=== PATIENT | male | born 1940 | race Caucasian/White ===

== ENCOUNTER 2017-06-22 14:19 | Emergency (ER) | payer OTHER ==
[~2017-06-22] VITALS: Ht 177.8 cm; Wt 94.4 kg
[~2017-06-22 14:19] MED LIST: CIPR-255 PO; OMEP20CA9 PO; ZTA10 PO
[2017-06-22 14:21] VITALS: TEMP 36.5; Ht 177.8 cm; Wt 94.4 kg
[2017-06-22] MEDS ORDERED: CEFU500T16 PO (14:32)
--- NOTE | 2017-06-22 14:56 | EMERGENCY ROOM VISIT NOTE ---
History First contact with patient: 14:26 Chief Complaint: CONGESTION Stated Complaint: CHEST COLD Nursing Triage Summary: pt reports ill since Jun 10 with nasal and chest congestion pt has productive cough with thick yellow sputum chest tightness with coughing on left side pt has taken course of ceftin pt went to [facility] had ekg and chest xr pt told he needed blood work, and to go to ER pt reports "preferring just do have an order for blood work and not needing to go to ED" History of Present Illness The patient is a 76 year old male who presents to the Emergency Room with complaints of cough for 2 weeks. Patient states that he has had this ongoing cough for 2 weeks. He is coughing yellow sputum. Cough is been stable. He denies any wheezing. Denies being short of breath. He states he given the duration of his cough, he feels that he 's having some left-sided pectoral and chest pain is associated with coughing, but not associated with walking around or any kind of exertion. 2 nights ago he woke up from his sleep and states that he was having shoulder pain. Describes the pain is within the joint, but not radiate up to the jaw, back, or down to the hand. He states "I think I just rolled on it funny". In general he states that he feels fatigued with low energy. He denies any fevers chills or night sweats. He has had slightly reduced appetite but continues to try and drink fluids. The patient did see his PCP on days ago who started Ceftin. The patient is on day 9 of a 10-day course, but the patient feels that he has not gotten any relief from Ceftin so far. They went to [facility] today. The provider who evaluated him stated that they were concerned about the possibility of this being cardiac in origin, and wanted him to come to the emergency room to be evaluated. Current he states that he is completely pain free at rest. Review of Systems A 10 point review of systems was negative unless stated above. Past Medical/Surgical History Medical Problems: (1) ESOPHAGEAL REFLUX (2) HYPERLIPIDEMIA NEC/NOS Surgical Problems: (1) S/P appendectomy (2) S/P cholecystectomy Family History Diabetes mellitus Gallbladder disease Social History Smoking Status: Former Smoker Smokeless Tobacco Use: No Alcohol Use: none Drug Use: none Marital Status: Housing Status: lives with family Occupation Status: retired Current/Historical Medications Scheduled Cefuroxime Axetil (Ceftin), 500 MG PO BID Levofloxacin (Levaquin), 750 MG PO DAILY Prednisone (Prednisone), 50 MG PO DAILY Allergies Macrolides Physical Exam Vital Signs Date Time Temp Pulse Resp B/P (MAP) Pulse Ox O2 Delivery O2 Flow Rate FiO2 06/22/17 16:00 49 18 144/67 97 Room Air 06/22/17 15:21 56 06/22/17 14:21 36.5 61 18 145/86 97 Room Air Pain Rating (0-10): 0 Physical Exam Constitutional: Vital signs as above were reviewed. Eyes: Left pupils equal, round, and reactive to light. Extraocular muscles are intact. No proptosis. No photophobia. Artificial lens in the right eye ENT: Mucous membranes are moist. Oropharynx is clear. No sinus tenderness. TMs are clear bilaterally. Cardiovascular: Heart with a regular rate and rhythm. No pedal edema appreciated. No JVD Respiratory: Lungs clear to auscultation bilaterally. No wheezes, rales, or rhonchi appreciated. No accessory muscle use. No retractions. No increased work of breathing. GI: Abdomen soft, nontender, nondistended. Normal active bowel sounds. No abdominal hernias appreciated. No rebound. No guarding. : No CVA tenderness appreciated. Musculoskeletal: No midline cervical or vertebral tenderness. No gross deformities. No bony tenderness. No calf swelling or tenderness. Mild tenderness to palpation in the left axilla No reproducible tenderness along the anterior or posterior chest wall Integumentary: Warm, dry, no rashes appreciated. Neurological: Patient awake, alert, and oriented x 3. Lymph: No cervical lymphadenopathy appreciated. Medical Decision & Procedures ER Provider Diagnostic Interpretation: CHEST ONE VIEW PORTABLE HISTORY: cough x 2 weeks; productive, rule-out PNA COMPARISON: Chest 05/16/2014. FINDINGS: The heart remains mildly enlarged. There are patchy bibasilar densities. The upper lung zones remain clear. No pleural effusions. No pneumothorax. IMPRESSION: 1. Patchy bibasilar densities. This could represent atelectasis or pneumonia. Follow-up radiograph in one month is recommended to ensure resolution. 2. Stable cardiomegaly. Electronically signed by: Konstantin Sinclair M.D. 06/22/2017 3:44 PM Dictated Date/Time: 06/22/2017 3:42 PM The status of this report is Signed. Draft = Not yet reviewed or approved by Radiologist. Signed = Reviewed and approved by Radiologist. Laboratory Results 06/22/17 14:55 Red Blood Count 5.38, Mean Corpuscular Volume 87.7, Mean Corpuscular Hemoglobin 29.0, Mean Corpuscular Hemoglobin Concent 33.1, Mean Platelet Volume 9.8, Neutrophils (%) (Auto) 57.7, Lymphocytes (%) (Auto) 30.4, Monocytes (%) (Auto) 8.8, Eosinophils (%) (Auto) 2.7, Basophils (%) (Auto) 0.4, Neutrophils # (Auto) 2.81, Lymphocytes # (Auto) 1.48, Monocytes # (Auto) 0.43, Eosinophils # (Auto) 0.13, Basophils # (Auto) 0.02 06/22/17 14:55 Test 06/22/17 14:55 06/22/17 15:00 White Blood Count 4.87 K/uL (4.8-10.8) Red Blood Count 5.38 M/uL (4.7-6.1) Hemoglobin 15.6 g/dL (14.0-18.0) Hematocrit 47.2 % (42-52) Mean Corpuscular Volume 87.7 fL (80-100) Mean Corpuscular Hemoglobin 29.0 pg (25-34) Mean Corpuscular Hemoglobin Concent 33.1 g/dl (32-36) Platelet Count 180 K/uL (130-400) Mean Platelet Volume 9.8 fL (7.4-10.4) Neutrophils (%) (Auto) 57.7 % Lymphocytes (%) (Auto) 30.4 % Monocytes (%) (Auto) 8.8 % Eosinophils (%) (Auto) 2.7 % Basophils (%) (Auto) 0.4 % Neutrophils # (Auto) 2.81 K/uL (1.4-6.5) Lymphocytes # (Auto) 1.48 K/uL (1.2-3.4) Monocytes # (Auto) 0.43 K/uL (0.11-0.59) Eosinophils # (Auto) 0.13 K/uL (0-0.5) Basophils # (Auto) 0.02 K/uL (0-0.2) RDW Standard Deviation 45.8 fL (36.4-46.3) RDW Coefficient of Variation 14.4 % (11.5-14.5) Immature Granulocyte % (Auto) 0.0 % Immature Granulocyte # (Auto) 0.00 K/uL (0.00-0.02) Anion Gap 2.0 mmol/L (3-11) Est Creatinine Clear Calc Drug Dose 57.5 ml/min Estimated GFR () 63.8 Estimated GFR (Non- 55.0 BUN/Creatinine Ratio 14.5 (10-20) Calcium Level 8.8 mg/dl (8.5-10.1) Troponin I < 0.015 ng/ml (0-0.045) Chemistry Specimen Hemolysis Influenza Type A Antigen Neg for Influ A (NEG) Influenza Type B Antigen Neg for Influ B (NEG) ECG Change: Sinus bradycardiac with 1st degree AV block Ventricular rate [address] or T wave changes No ectopy or pauses Compared to EKG done today at [facility]; no acute changes ED Course 14:30 - The patient was seen and evaluated by Dr. Stone Garcia MD [facility] 14:50 - Labs placed: CBC, BMP, Troponin, Rapid Flu, EKG, CXR Xopenex/Atrovent treatment 15:50 - Reviewed labs Normal labs; negative troponin Xray queries possible bilateral PNA Discussed x-ray findings to patient, recommend D/C home with change of antibiotics and short course of steroids. Patient in agreement with plan Discharged home in stable condition Medical Decision Patient is 76 showed male, without any past cardiac history who presents with 2 weeks of productive cough and 2 days of left-sided chest pain. The differential diagnosis includes bronchitis, costochondritis, pneumonia, ACS , pneumothorax, pulmonary embolism. His only prescription the proximal scale was 1 (given for age > 50). Suspicion for pulmonary most was low and no further workup was pursued. Regarding evaluation for ACS/cardiac etiology to chest pain, we did an EKG in the emergency room which was unchanged compared to an EKG done at [facility]. Neither these EKGs had any acute ST or T-wave changes. We also did a troponin in the emergency room which was normal. In the setting of his normal labs and non-anginal chest pain, we did not feel that further evaluation was required at this time. The chest x-ray did suggest possible evolution of bilateral pneumonia. This may explain his symptoms and certainly fits with a history. Her plan is to treat him with antibiotics and steroids and monitor as an outpatient for response. The patient appeared well in the emergency room. He did not have tachypnea, tachycardia or hypoxia. He was afebrile. His CURB-65 score was 1 (point given for age). Collectively, these findings did not warrant admission. I discussed all the findings above with the patient. I noted to the patient and his girlfriend that I did not feel his presentation was concerning for cardiac etiology. I did relay to them that there may be an pneumonia which we should treat at this time. I did advise him to start Levaquin for 7 days in addition to 5 days of prednisone. I've advised the patient to follow-up with his primary care provider in one week, and to repeat a chest x-ray in one month. The patient was agreeable to plan. The patient was discharged home in stable condition. Head Trauma GCS Score: 15 Blood Pressure Screening Patient's blood pressure: Elevated blood pressure Blood pressure disposition: Elevated BP felt to be situational Impression Primary Impression: Pneumonia Additional Impression: Chest wall pain Ruled Out: Acute coronary syndrome Departure Information Dispostion Home / Self-Care Condition GOOD Prescriptions Prednisone (Prednisone) 50 Mg Tab 50 MG PO DAILY for 5 Days, #5 TAB Prov: Stone Garcia MD 06/22/17 Levofloxacin (Levaquin) 750 Mg Tab 750 MG PO DAILY for 7 Days, #7 TAB Prov: Stone Garcia MD 06/22/17 Referrals Jose E Patten M.D. (PCP) Patient Instructions My [facility] Additional Instructions You came to the ED for coughing for 2 weeks. You have been on Ceftin which has not been working. [employer] was concerned that your chest discomfort was from your heart so they sent you here to the ER. However, we did an EKG in the ER which was not concerning. Furthermore, the blood test for heart attack was fortunately negative. We checked a chest x-ray which may show an early pneumonia. You need to repeat the X-ray 1 month There were no other concerning abnormalities on your lab work. Going home, we will change your antibiotic to Levaquin for 7 days. In addition we will give you a short course of Prednisone. Please continue taking Mucinex In addition, you can take Tylenol or Motrin for fever or discomfort. At this time, please stop taking Ceftin. If your symptoms fail to improve or acutely worsen, please seek medical attention immediately by either calling your primary care provider or going to your nearest emergency department. Otherwise, please see your primary care provider within 1 week to ensure that your symptoms continue to improve. It was a pleasure to be involved in your care and we wish you all the best. Problem Qualifiers
--- NOTE | 2017-06-22 15:06 | EMERGENCY ROOM VISIT NOTE ---
ED Visit Note First contact with patient: 14:26 The patient was seen and examined with Dr. Stone Garcia. I agree with the history, physical and findings. Please see the note for disposition and details. Patient w/ mild productive cough. Cough prolonged, cough today. Reproducible chest wall discomfort. NO change in pain w/ ambulation or acitivity. No prior CAD hx. Neg cardiac cath x 2 most recent 10 years prior. EKG non-ischmemic, vinny but w/ P before every QRS. First degree AV block. Less likely ACS given chronicity w/o exertional CP or dyspnea. No LE swelling. Wells of 0, less likely PE. CXR w/ ?patchiness and given hx, given abx as outpatient. Likely chronic bronchitis vs PNA. Patient w/o tachypnea, hypoxia, nor tachycardia, WBC WNL, deemed suitable for outpatient trx at this time. D/c'ed to home.
[2017-06-22 15:07] LABS: BASO % 0.4 %; BASO ABS # 0.02 K/uL (0-0.2); COMPLETE YES; EOS % 2.7 %; HEMATOCRIT 47.2 % (42-52); LYMPH % 30.4 %; LYMPH ABS # 1.48 K/uL (1.2-3.4); MEAN CELL VOLUME 87.7 fL (80-100); MEAN CORPUSCULAR HGB CONC 33.1 g/dl (32-36); MEAN PLATELET VOLUME 9.8 fL (7.4-10.4); MONO % 8.8 %; NEUT % 57.7 %; PLATELET COUNT 180 K/uL (130-400); RED BLOOD COUNT 5.38 M/uL (4.7-6.1); WHITE BLOOD COUNT 4.87 K/uL (4.8-10.8)
[2017-06-22 15:34] LABS: BLOOD UREA NITROGEN 18 mg/dl (7-18); BUN/CREATININE RATIO 14.5 (10-20); CALCIUM 8.8 mg/dl (8.5-10.1); CARBON DIOXIDE 31 mmol/L (21-32); CHLORIDE 108 mmol/L (98-107); CREATININE 1.26 mg/dl (0.60-1.40); GLUCOSE 100 mg/dl (70-99); POTASSIUM 4.4 mmol/L (3.5-5.1); SODIUM 141 mmol/L (136-145)
[2017-06-22] MEDS ORDERED: PRED50TA PO (15:42)
[2017-06-22] MEDS ORDERED: LEVO1TAB35 PO (15:42)
--- NOTE | 2017-06-22 15:45 | DIAGNOSTIC IMAGING REPORT ---
CHEST ONE VIEW PORTABLE HISTORY: cough x 2 weeks; productive, rule-out PNA COMPARISON: Chest 05/16/2014. FINDINGS: The heart remains mildly enlarged. There are patchy bibasilar densities. The upper lung zones remain clear. No pleural effusions. No pneumothorax. IMPRESSION: 1. Patchy bibasilar densities. This could represent atelectasis or pneumonia. Follow-up radiograph in one month is recommended to ensure resolution. 2. Stable cardiomegaly. Electronically signed by: Konstantin Sinclair M.D. 06/22/2017 3:44 PM Dictated Date/Time: 06/22/2017 3:42 PM
[2017-06-22 16:00] VITALS: BP 144/67; PULSE 49; O2SAT 97
== END 2017-06-22 16:05 | disposition home or self-care (01) ==
LOC: C.EDB 14:20 → C.EDA 16:05
DX: J18.9 Pneumonia, unspecified organism (principal); I44.0 Atrioventricular block, first degree; R07.89 Other chest pain; E78.5 Hyperlipidemia, unspecified; K21.9 Gastro-esophageal reflux disease without esophagitis; Z87.891 Personal history of nicotine dependence; Z79.899 Other long term (current) drug therapy; Z98.890 Other specified postprocedural states; Z90.49 Acquired absence of other specified parts of digestive tract; Z88.8 Allergy status to other drugs, medicaments and biological substances; Z83.3 Family history of diabetes mellitus; Z83.79 Family history of other diseases of the digestive system

== ENCOUNTER 2017-12-21 00:59 | Emergency (ER) | payer OTHER ==
[~2017-12-21] VITALS: Ht 177.8 cm; Wt 93.8 kg
[~2017-12-21 00:59] MED LIST changes: +CEFU500T16 PO; -CIPR-255 PO; -OMEP20CA9 PO; -ZTA10 PO
[2017-12-21 01:03] VITALS: TEMP 37.3
--- NOTE | 2017-12-21 01:37 | EMERGENCY ROOM VISIT NOTE ---
History Report prepared by Margaret: Bre Carrasco Under the Supervision of: Dr. Janneth Perry D.O. First contact with patient: 01:08 Chief Complaint: ILLNESS Stated Complaint: FLU?,BRONCITIS?,PNEUMONIA? History of Present Illness The patient is a 77 year old male who presents to the Emergency Room with complaints of a worsening illness that started 5 days ago. The patient rates his pain a 5/10 in severity. The patient was in [place] last week and around a lot of different people. He was also around 2 different people with a cough. He notes he lost his voice on Tuesday and it proceeded to get worse into yesterday morning. He states, "I started coughing up green stuff". The patient had pneumonia in the fall. He states he has no history of asthma. The patient states he has chills and a sore throat. He denies any fever, abdominal pain, leg cramping or swelling, urine problems, or shortness of breath. The patient reports he is taking Mucinex to help his symptoms. Source of History: patient Onset: 5 days ago Position: other (global) Symptom Intensity: 5/10 Timing: worsening Associated Symptoms: + chills, + sorethroat, + cough, No SOB, No abdominal pain, No urinary symptoms Note: Denies leg cramping or swelling. Review of Systems See HPI for pertinent positives & negatives. A total of 10 systems reviewed and were otherwise negative. Past Medical & Surgical Medical Problems: (1) ESOPHAGEAL REFLUX (2) HYPERLIPIDEMIA NEC/NOS Surgical Problems: (1) S/P appendectomy (2) S/P cholecystectomy Family History Diabetes mellitus Gallbladder disease Social History Smoking Status: Never Smoker Alcohol Use: none Drug Use: none Marital Status: Housing Status: lives with family Occupation Status: retired Current/Historical Medications Scheduled Amoxicillin & Pot Clavulanate (Augmentin 875-125 mg), 875 MG PO BID Allergies Coded Allergies: Macrolides (Verified Allergy, Unknown, ? LEG SWELLING, 12/21/17) Physical Exam Vital Signs Date Time Temp Pulse Resp B/P (MAP) Pulse Ox O2 Delivery O2 Flow Rate FiO2 12/21/17 03:43 64 18 120/72 96 12/21/17 03:32 64 18 120/72 96 Room Air 12/21/17 02:37 68 18 117/69 94 Room Air 12/21/17 01:39 71 12/21/17 01:03 37.3 74 18 125/76 94 Room Air Physical Exam HEENT: Head - normocephalic and atraumatic Eye - Pupils are equal, round, and reactive to light. Extraocular eye muscles are intact. Prosthetic right eye, thick yellow drainage from both eyes, left eye scleral injection. Nose - thick yellow discharge. Mouth - moist buccal mucosa. Oropharynx is nonerythematous and there is no tonsillar exudate or edema noted. Significant post nasal drip. Neck: Supple; no JVD, nuchal rigidity, cervical lymphadenopathy. Heart: Regular rate and rhythm. There is a normal S1 and S2 with no murmurs, clicks, or gallops appreciated. Lungs: Diminished breath sounds at both lung bases. Abdomen: Soft, completely nontender, nondistended, with good bowel sounds. There are no palpable pulsatile masses or hepatosplenomegaly. There is no guarding, rigidity, or rebound noted. Extremities: No evidence of cyanosis, clubbing, or edema. There are easily palpable peripheral pulses. Skin: warm and dry with good turgor and no rashes. Medical Decision & Procedures ER Provider Diagnostic Interpretation: Radiology results as stated below per my review and the radiologist's interpretation: 2 VIEW CHEST XRAY: Cardiomegaly, early right basilar infiltrate. Laboratory Results 12/21/17 01:45 Red Blood Count 5.20, Mean Corpuscular Volume 87.1, Mean Corpuscular Hemoglobin 29.0, Mean Corpuscular Hemoglobin Concent 33.3, Mean Platelet Volume 9.6, Neutrophils (%) (Auto) 70.2, Lymphocytes (%) (Auto) 14.1, Monocytes (%) (Auto) 13.2, Eosinophils (%) (Auto) 2.2, Basophils (%) (Auto) 0.1, Neutrophils # (Auto ) 5.87, Lymphocytes # (Auto) 1.18, Monocytes # (Auto) 1.10, Eosinophils # (Auto ) 0.18, Basophils # (Auto) 0.01 12/21/17 01:45 Test 12/21/17 01:38 12/21/17 01:44 12/21/17 01:45 12/21/17 02:15 Influenza Type A Antigen Neg for Influ A (NEG) Influenza Type B Antigen Neg for Influ B (NEG) Bedside Lactic Acid Venous 0.70 mmol/L (0.90-1.70) White Blood Count 8.36 K/uL (4.8-10.8) Red Blood Count 5.20 M/uL (4.7-6.1) Hemoglobin 15.1 g/dL (14.0-18.0) Hematocrit 45.3 % (42-52) Mean Corpuscular Volume 87.1 fL (80-100) Mean Corpuscular Hemoglobin 29.0 pg (25-34) Mean Corpuscular Hemoglobin Concent 33.3 g/dl (32-36) Platelet Count 148 K/uL (130-400) Mean Platelet Volume 9.6 fL (7.4-10.4) Neutrophils (%) (Auto) 70.2 % Lymphocytes (%) (Auto) 14.1 % Monocytes (%) (Auto) 13.2 % Eosinophils (%) (Auto) 2.2 % Basophils (%) (Auto) 0.1 % Neutrophils # (Auto) 5.87 K/uL (1.4-6.5) Lymphocytes # (Auto) 1.18 K/uL (1.2-3.4) Monocytes # (Auto) 1.10 K/uL (0.11-0.59) Eosinophils # (Auto) 0.18 K/uL (0-0.5) Basophils # (Auto) 0.01 K/uL (0-0.2) RDW Standard Deviation 47.0 fL (36.4-46.3) RDW Coefficient of Variation 14.6 % (11.5-14.5) Immature Granulocyte % (Auto) 0.2 % Immature Granulocyte # (Auto) 0.02 K/uL (0.00-0.02) Prothrombin Time 10.1 SECONDS (9.0-12.0) Prothromb Time International Ratio 1.0 (0.9-1.1) Activated Partial Thromboplast Time 26.5 SECONDS (21.0-31.0) Partial Thromboplastin Ratio 1.0 Anion Gap 5.0 mmol/L (3-11) Est Creatinine Clear Calc Drug Dose 51.2 ml/min Estimated GFR () 56.3 Estimated GFR (Non- 48.5 BUN/Creatinine Ratio 11.6 (10-20) Calcium Level 8.6 mg/dl (8.5-10.1) Total Bilirubin 0.7 mg/dl (0.2-1) Aspartate Amino Transf (AST/SGOT) 19 U/L (15-37) Alanine Aminotransferase (ALT/SGPT) 23 U/L (12-78) Alkaline Phosphatase 60 U/L (45-117) Total Protein 7.2 gm/dl (6.4-8.2) Albumin 3.2 gm/dl (3.4-5.0) Globulin 4.0 gm/dl (2.5-4.0) Albumin/Globulin Ratio 0.8 (0.9-2) Urine Color YELLOW Urine Appearance CLEAR (CLEAR) Urine pH 5.5 (4.5-7.5) Urine Specific [place] 1.019 (1.000-1.030) Urine Protein NEG (NEG) Urine Glucose (UA) NEG (NEG) Urine Ketones NEG (NEG) Urine Occult Blood TRACE (NEG) Urine Nitrite NEG (NEG) Urine Bilirubin NEG (NEG) Urine Urobilinogen NEG (NEG) Urine Leukocyte Esterase NEG (NEG) Urine WBC (Auto) 1-5 /hpf (0-5) Urine RBC (Auto) 0-4 /hpf (0-4) Urine Hyaline Casts (Auto) 1-5 /lpf (0-5) Urine Epithelial Cells (Auto) 0-5 /lpf (0-5) Urine Bacteria (Auto) NEG (NEG) Laboratory results per my review. Medications Administered Medications (Trade) Dose Ordered Sig/Parveen Route Start Time Stop Time Status Last Admin Dose Admin Amoxicillin/ Clavulanate Potassium (Augmentin Tab) 875 mg ONE ONCE PO 12/21/17 03:45 12/21/17 03:46 DC 12/21/17 03:40 875 MG Procedure 0345: Augmentin Tab 875 mg PO. ECG Per My Interpretation Indication: vomiting Rate (beats per minute): 68 Rhythm: sinus rhythm Findings: no acute ischemic change, other (no ST segmant changes) ED Course 0108: The patient was evaluated in room B12B. A complete history and physical examination were performed. Nursing notes and previous electronic medical records were reviewed. IV lock was established and labs were drawn as above. A septic protocol was performed. The patient had a 12-lead EKG as described above. He had a chest x-ray as described above. 0315: I rechecked the patient and discussed results with him. His O2 saturations were stable. He said he did not have a good response to antibiotics in the fall when he previously had pneumonia. He was given Levaquin , Prednisone, then Cefuroxime. His family states that he went on to receive Augmentin which did seem to work. 0335: I discussed results and treatment with the patient and his family and he is ready for discharge. 0345: Augmentin Tab 875 mg PO. Medical Decision The patient is a 77 year old male who presents to the ED with an illness. Differential diagnosis includes influenza, bronchitis, PNA, viral URI, conjunctivitis, PE. The lab results show: Normal leucocytosis Stable H & H Normal renal function Glucose 106 Lactic acid 0.7 Normal LFT's This is a 77-year-old male patient presents to the emergency department with a cough productive of green sputum. Patient also describes thick yellow discharge from his eyes. The patient is afebrile with a normal oxygen saturation and a negative lactic acid. Chest x-ray is equivocal. There appears to be an early infiltrate/opacity in the right lung base. There is some peribronchial cuffing. The patient's symptoms and clinical presentation seems consistent with acute bronchitis and/or pneumonia. With his history of pneumonia, I have opted to treat him with antibiotics. He was given his first dose of Augmentin and will continue a 10 day course. I encouraged the patient to follow-up with his PCP for recheck in the next couple of days. If symptoms worsen, he should return to the emergency department. Medication Reconcilliation Current Medication List: was personally reviewed by me Blood Pressure Screening Patient's blood pressure: Normal blood pressure Impression Primary Impression: Bronchitis Scribe Attestation The scribe's documentation has been prepared under my direction and personally reviewed by me in its entirety. I confirm that the note above accurately reflects all work, treatment, procedures, and medical decision making performed by me. Departure Information Dispostion Home / Self-Care Prescriptions Amoxicillin & Pot Clavulanate (Augmentin 875-125 mg) 1 Tab Tab 875 MG PO BID, #20 TAB Prov: Janneth Perry D.O. 12/21/17 Referrals Jose E Patten M.D. (PCP) Patient Instructions My [facility] Additional Instructions Rest over the next 2 days Take Augmentin twice a day for 10 days Return to the ER for any respiratory distress. Follow up with Dr. Patten if not improving
[2017-12-21 01:38] VITALS: Ht 177.8 cm; Wt 93.8 kg
[2017-12-21 01:55] LABS: BASO % 0.1 %; BASO ABS # 0.01 K/uL (0-0.2); EOS % 2.2 %; EOS ABS # 0.18 K/uL (0-0.5); HEMATOCRIT 45.3 % (42-52); HEMOGLOBIN 15.1 g/dL (14.0-18.0); IG# 0.02 K/uL (0.00-0.02); LYMPH % 14.1 %; LYMPH ABS # 1.18 K/uL (1.2-3.4); MEAN CELL VOLUME 87.1 fL (80-100); MEAN CORPUSCULAR HGB CONC 33.3 g/dl (32-36); MEAN PLATELET VOLUME 9.6 fL (7.4-10.4); MONO % 13.2 %; NEUT % 70.2 %; NEUT ABS # 5.87 K/uL (1.4-6.5); PLATELET COUNT 148 K/uL (130-400); RED CELL DISTRIBUTION WIDTH CV 14.6 % (11.5-14.5); WHITE BLOOD COUNT 8.36 K/uL (4.8-10.8)
[2017-12-21 02:06] LABS: INFLUENZA B ANTIGEN Neg for Influ B (NEG)
[2017-12-21 02:15] LABS: PTT PATIENT 26.5 SECONDS (21.0-31.0)
[2017-12-21 02:18] LABS: ALBUMIN 3.2 gm/dl (3.4-5.0); CALCIUM 8.6 mg/dl (8.5-10.1); CREATININE 1.39 mg/dl (0.60-1.40); POTASSIUM 3.8 mmol/L (3.5-5.1)
[2017-12-21 02:21] LABS: TOTAL PROTEIN 7.2 gm/dl (6.4-8.2)
[2017-12-21] MEDS ORDERED: AMOX875T PO (03:33)
[2017-12-21 03:43] VITALS: BP 120/72; PULSE 64; O2SAT 96
[2017-12-21] MEDS ORDERED: AMOXICILLIN/CLAVULANATE TAB 875 MG TAB PO ONE (03:45)
--- NOTE | 2017-12-21 06:40 | DIAGNOSTIC IMAGING REPORT ---
CHEST 2 VIEWS ROUTINE CLINICAL HISTORY: productive cough dyspnea COMPARISON STUDY: 06/22/2017 FINDINGS: Mild stable cardia megaly. Diaphragms are smooth. Slight interstitial prominence slightly increased in the prior exam. Chronic left retrocardiac atelectatic change. IMPRESSION: Mild basilar bronchitis. The above report was generated using voice recognition software. It may contain grammatical, syntax or spelling errors. Electronically signed by: Huy King M.D. 12/21/2017 6:38 AM Dictated Date/Time: 12/21/2017 6:37 AM
== END 2017-12-21 03:43 | disposition home or self-care (01) ==
LOC: C.EDB 01:00
DX: J40 Bronchitis, not specified as acute or chronic (principal); H57.8 Other specified disorders of eye and adnexa; Z87.01 Personal history of pneumonia (recurrent); K21.9 Gastro-esophageal reflux disease without esophagitis; E78.5 Hyperlipidemia, unspecified; Z88.1 Allergy status to other antibiotic agents; Z97.0 Presence of artificial eye

== ENCOUNTER 2024-11-12 04:47 | Inpatient (IN) ==
--- OUTSIDE RECORDS SUMMARY | 2024-11-12 04:53 | External Medical Summary | Summary of Care ---
Author Name Unknown Organization [facility] Address [address] [place] [address] Phone [phone] Care Team Providers Care Rheumatologist Name Role Phone Earline NO MD, Jose E Taylor Primary Care Pr ovider Encounter Details Date Type Department Care Team (Late st Contact Info) Description 09/25/2024 Population Health External Data Unspecified Department Allergies Active Allergy Reactions Criticality Noted Date Comments Erythromycin Unknown 08/21/2003 documented as of this encounter (statuses as of 09/25/2024) Medications No known medicationsdocumented as of this encounter (statuses as of 09/25/2024) Active Problems Problem Noted Date Diagnosed Date 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 (Adult - for ages 18 years and over) Not on file 02/21/2024 Is your family able to pay t he heat, water, or electric bill? (Household - for ages 0-17 years) Not on file 02/21/2024 Does your family have access to good internet? (Household - for ages 0-17 years) Not on file 02/21/2024 Social Connections Answer Date Recorded How often do you feel lonely or isolated from those around you? (Adult - for ages 18 years and over) Not on file 02/21/2024 Sex and Gender Information Value Date Recorded Sex Assigned at Not on file Legal Sex Male 5:53 AM EST Gender Identity Not on file Sexual Orientation Not on file documented as of this encounter Plan of Treatment Health Maintenance Due Date Last Done Comments Depression Screening 1952 DTap/Tdap Vaccines (1 - Tdap) 11/20/1959 Pneumococcal Vaccine: 50+ Ye ars (1 of 1 - PCV) 1990 Zoster Vaccines (1 of 2) 1990 COVID-19 Vaccine (1 - 2023-2 5 season) 2024 Influenza Vaccine (FLU shot) (#1) 2024 015 HPV (Gardasil) Vaccine Aged Out No lo nger eligible based on patient's age to complete this topic Hepatitis B Vaccine Aged Out No longe r eligible based on patient's age to complete this topic MENINGOCOCCAL (MENACTRA/MENVEO) Aged Out No longer eligible based on patient's age to complete this topic documented as of this encounter Medical Devices Implanted Type Area Compilation Clerk Device Identifier Shelf Expiration Date Model / Serial / Lot Mesh 3dmax 3.1x5.3in Rht Med - [id number] Implanted:Qty: 1 on 12/22/2015 by Carlos Enrique Wahl MD at [facility] Right: Groin CR BARD : DAVOL 06/02/2020 [id number] / / [id number] Mesh 3dmax 3.1x5.3in Lft Med - [id number] Implanted:Qty: 1 on 12/22/2015 by Carlos Enrique Wahl MD at [facility] Left: Groin CR BARD : DAVOL 06/02/2020 [id number] / / [id number] documented as of this encounter Care Teams Rheumatologist Relationship Specialty Start Date End Date Jose E Patten III, MD PCP - General Internal Medicine 11/14/15 documented as of this encounter
[2024-11-12] MEDS: ONDANSETRON INJ 2 MG/ML 2 ML VIAL IV STA (04:56)
--- NOTE | 2024-11-12 04:58 | Emergency Department Note ---
Impression & Plan Syncope, Head injury Admit to the [facility] ED Provider Note NAME: DEEP INIGUEZ AGE: 83 SEX: Male INFORMANT: patient and EMS ED PROVIDER(S): Janneth Perry DO CHIEF COMPLAINT: unresponsive PLAN: Disposition: admit to the [facility] MEDICAL DECISION MAKING: this is an 83-year-old male patient who awoke from sleep around 11 PM at night feeling nauseated and as if he might vomit. He went to the bathroom and thoughts the last thing that he remembers. Patient's found him on the floor of the bathroom around 4 AM this morning. He was unresponsive and moaning. He had vomited and defecated. EMS was called to the home. They found him semi-responsive and hypotensive. Patient has evidence of trauma to the left side of his head He had hematomas noted to both sides of his tongue. laboratory studies revealed no leukocytosis or anemia. Glucose was elevated at 143. Troponin was negative. Coags were negative. Renal function and glucose were normal. Total CK was normal. CT scan of the brain, facial bones, cervical spine, chest, abdomen/pelvis were all obtained and were negative for acute traumatic injuries. Her main concern about the original cause of the patient's episode of unresponsiveness. The patient may have become hypotensive and had a syncopal event versus a possible seizure. [facility] and [facility] will [facility] the patient for inpatient care Care/management discussed with: heavy equipment service manager and [facility] Triage Nursing notes: reviewed and agree with them. Vital Signs: reviewed and remarkable for bradycardia Additional History obtained from: patient's who presented to the bedside Differential Diagnosis: STEMI, NSTEMI, cardiac dysrhythmia, vasovagal syncope, dehydration, Seizure, skull fracture, closed head injury, facial fractures, C-spine injury Diagnostics, independently interpreted by me: ECG: sinus bradycardia at a rate of [address] segment elevation or signs of ischemia. There is no ectopy. QTc was 471 ms Cardiac Monitoring: sinus bradycardia at 54 Imaging studies: Portable chest x-ray: Cardiomegaly with pulmonary vascular congestion as per my independent interpretation CT scan of the brain: As per Imbro CT scan of the cervical spine: As per Imbro CT scan of the chest: As per Imbro CT scan of the abdomen/pelvis: As per Imbro CT scan of the facial bones: As per Imbro HPI: 83 year old Male arrives for evaluation of unresponsiveness. Patient took sildenafil before bed but did not have sex. He states that he woke from sleep feeling nauseated and having chest discomfort. He got up to the bathroom feeling as if he were going to vomit and passed out onto the ground. He was on the floor for an unknown amount of time until his found him there earlier this morning with vomit about his mouth. 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 GCS: 15, E = 6 V=5 M= 4 Motor Function: Moves all extremities. 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 ENT: No fluid in external acoustic canals, no hemotympanum, no an's sign, nares patent, oropharynx clear but the patient has significant hematomas noted to both lateral aspects of his tongue. NECK: No JVD, midline trachea, no cervical spine tenderness, C-collar in place HEART: Bradycardic rate and regular rhythm. LUNGS: Clear to auscultation bilaterally. CHEST: Chest wall non-tender, no bruising/deformity ABD: No Hussein-Rodriguez's or [place]'s sign, soft, non-tender, no rebound or guarding, PELVIS: Stable to rock BACK: No step offs or deformities, T-L spine non tender EXT: 2+ global pulses, moving all extremities well, +5/5 muscle strength globally NEURO: CNII-XII grossly intact, no sensory deficits emergency department course: The patient was a trauma alert. he was evaluated in room B-1. A complete history and physical was performed. An order was placed for continuous cardiac monitoring. The patient was in a sinus bradycardia at a rate of 54. A twelve-lead EKG was obtained. Portable chest x- ray was performed. Patient's blood pressure remained stable. O2 saturations were normal. Patient went for CT scan of the brain, cervical spine, facial bones, chest, abdomen/pelvis. Cervical collar was removed and the patient sat up and was feeling much better but I reviewed the findings with the patient and his . I remain concerned about the episode of unresponsiveness and findings in his mouth. 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 Meningioma Right frontal lobe, [address] scan May 2020 Hypercholesteremia Carotid artery stenosis 70% R sided, 50% L sided Male erectile disorder of organic origin (Acute) Laryngopharyngeal reflux (Acute) Benign prostatic hyperplasia with urinary obstruction (Acute) Medical History Depression Actinic keratosis History of elevated prostate specific antigen (PSA) GERD without esophagitis Herpes zoster Nephrolithiasis Right inguinal hernia Seborrheic keratosis Surgical History H/O oral surgery S/P appendectomy S/P cholecystectomy Family History Other Diabetes Denies family history of Ovarian cancer Prostate cancer Myocardial infarction Breast cancer Colorectal cancer Social History Smoking Status: Never smoker Tobacco Type: Cigarettes Age Started Using Tobacco: 17; Age Quit Using Tobacco: 24; packs per day: 0.75; Second Hand Exposure: No; Do You Dip or Chew Tobacco: No; Hx Alcohol Use: No Hx Substance Use: No Preferred Language: Montenegrin Visual Impairment: No Limitations Hearing Ability: Use of Hearing Aid marital status: marital status details: remarried Apr 2020 Current Living Situation: Spouse current occupational status: retired current occupation: retired from career with [employer] Feels Safe at Home: Yes Childhood Exposure to Second-Hand Smoke: Yes Diet: low salt Dental Care, Regularly: No Physical Activity Frequency: Daily Seatbelt Use: always Sunscreen Use: No Allergies Allergies Allergy/AdvReac Type Severity Reaction Status Date / Time Macrolide Antibiotics Allergy Unknown ? LEG Verified 09/13/24 14:20 SWELLING erythromycin base Allergy Verified 09/13/24 14:20 Home Meds Previous Rx's Medication Instructions Recorded aspirin 81 mg tablet,delayed 81 mg PO DAILY #30 tabs 02/04/22 release naproxen 500 mg tablet 500 mg PO BID 14 days #28 tabs 06/19/24 triamcinolone acetonide 0.1 % 1 applic topical BID 2 weeks #80 06/19/24 topical ointment grams sildenafil 100 mg tablet 100 mg PO DAILY PRN sexual 09/13/24 activity #20 tabs atorvastatin 40 mg tablet 40 mg PO DAILY #90 tabs 11/02/24 tamsulosin 0.4 mg capsule 0.4 mg PO DAILY #90 caps 11/02/24 Results & Data (ED) Vital Signs Vital Signs - 24 hr 11/12/24 04:50 11/12/24 04:50 11/12/24 04:54 Temperature 36.6 C Temperature Source Pulse Rate 61 54 L Pulse Rate [Apical] Pulse Strength [Bilateral Femoral] Normal Respiratory Rate 14 Respiratory Effort / Characteristics Respiratory Depth Normal Blood Pressure 112/70 Blood Pressure [Right Arm] Blood Pressure Mean Blood Pressure Mean [Right Arm] Pulse Oximetry 99 Oxygen Delivery Method Room Air Oxygen Flow Rate 0 Sepsis Recent Fever Within 48 Hours Sepsis New/Unexplained Change in Mental Status Sepsis Action Taken by Nursing 11/12/24 04:57 11/12/24 05:34 11/12/24 06:00 Temperature 36.8 C Temperature Source Oral Pulse Rate 61 Pulse Rate [Apical] 59 L 54 L Pulse Strength [Bilateral Femoral] Respiratory Rate 16 16 16 Respiratory Effort / Characteristics Non-Labored Non-Labored Respiratory Depth Normal Normal Normal Blood Pressure 107/63 Blood Pressure [Right Arm] 119/63 155/63 H Blood Pressure Mean 77 Blood Pressure Mean [Right Arm] 81 93 Pulse Oximetry 98 93 92 Oxygen Delivery Method Room Air Room Air Nasal Cannula Oxygen Flow Rate 3 Sepsis Recent Fever Within 48 Hours No Sepsis New/Unexplained Change in Mental Status No Sepsis Action Taken by Nursing No Action Required 11/12/24 07:00 Temperature Temperature Source Pulse Rate Pulse Rate [Apical] 57 L Pulse Strength [Bilateral Femoral] Respiratory Rate 20 Respiratory Effort / Characteristics Respiratory Depth Blood Pressure Blood Pressure [Right Arm] 130/69 Blood Pressure Mean Blood Pressure Mean [Right Arm] 89 Pulse Oximetry 96 Oxygen Delivery Method Room Air Oxygen Flow Rate Sepsis Recent Fever Within 48 Hours Sepsis New/Unexplained Change in Mental Status Sepsis Action Taken by Nursing Laboratory Data 11/12/24 05:08 11/12/24 05:08 Lab Results 11/12/24 11/12/24 Range/Units 05:08 05:10 WBC 9.28 (4.8-10.8) K/ul RBC 5.18 (4.70-6.10) M/uL Hgb 14.9 (14.0-18.0) g/dl POC Hgb 15.0 (14.0-18.0) g/dl Hct 45.2 (42.0-52.0) % POC Hct 44 (42-52) % MCV 87.3 (80.0-100.0) fL MCH 28.8 (25.0-34.0) pg MCHC 33.0 (32.0-36.0) g/dL RDW Std Deviation 47.5 H (36.4-46.3) fL RDW Coeff of Mansoor 14.8 H (11.5-14.5) % Plt Count 178 (130-400) K/uL MPV 10.5 (9.4-12.4) fL Immature Gran % (Auto) 0.2 % Neut % (Auto) 72.8 % Lymph % (Auto) 17.5 % [place] % (Auto) 6.7 % Eos % (Auto) 2.4 % Baso % (Auto) 0.4 % Neut # (Auto) 6.76 H (1.40-6.50) K/uL Lymph # (Auto) 1.62 (1.20-3.40) K/uL [place] # (Auto) 0.62 H (0.11-0.59) K/uL Eos # (Auto) 0.22 (0.00-0.50) K/uL Baso # (Auto) 0.04 (0.00-0.20) K/uL Immature Gran # (Auto) 0.02 (0.01-0.20) K/uL PT 11.4 (9.0-12.0) Seconds INR 1.1 (0.9-1.1) APTT 21 (21-31) Seconds PTT Ratio 0.8 POC Sodium 143 (135-144) mmol/L Sodium 141 (136-145) mmol/L POC Potassium 4.4 (3.3-5.0) mmol/L Potassium 4.3 (3.5-5.1) mmol/L POC Chloride 108 (101-112) mmol/L Chloride 109 H (98-107) mmol/L Carbon Dioxide 25 (21-32) mmol/L POC Total CO2 24 (24-31) mmol/L Anion Gap 7 (3-11) POC Anion Gap 16.0 (16-25) mmol/L POC BUN 15 (7-18) mg/dl BUN 16 (6-23) mg/dl Creatinine 1.25 (0.6-1.4) mg/dl POC Creatinine 1.5 H (0.6-1.3) mg/dl Est Cr Clr Drug Dosing 55.3 ml/min eGFR 57.14 BUN/Creatinine Ratio 12.8 (10-20) Glucose 143 H (70-99(Fasting)) mg/dl POC Glucose (other) 135 H (70-99) mg/dl Calcium 9.0 (8.6-10.3) mg/dl POC Ioniz Calcium Pebbles 1.09 L (1.12-1.32) mmol/l Magnesium 1.7 (1.7-2.4) mg/dl Total Bilirubin 0.8 (0.2-1.0) mg/dl AST 17 (13-39) U/L ALT 16 (7-52) U/L Alkaline Phosphatase 74 (34-104) U/L Total Creatine Kinase 153 (30-223) U/L Troponin I High Sens 2.3 (0-20) pg/ml Total Protein 6.0 (6.0-8.3) gm/dl Albumin 3.6 (3.4-5.0) gm/dl Globulin 2.4 L (2.5-4.0) gm/dl Albumin/Globulin Ratio 1.5 (0.9-2) Lipase 18 (11-82) U/L Administered Medications Discontinued Medications Ioversol (Optiray 320 100ml) 100 ml IV ONCE ONE Stop: 11/12/24 05:29 Last Admin: 11/12/24 05:28 Dose: 93 ml Documented By: GUANAKO Ondansetron HCl (Ondansetron Inj 2 Mg/Ml 2 Ml Vial) Confirm Administered Dose 4 mg .ROUTE .K-MED ONE Stop: 11/12/24 04:55 Last Admin: 11/12/24 05:43 Dose: Not Given Documented By: Ondansetron HCl (Ondansetron Inj 2 Mg/Ml 2 Ml Vial) 4 mg IV NOW STA Stop: 11/12/24 04:57 Last Admin: 11/12/24 04:56 Dose: 4 mg Documented By: Imaging Data Radiologist's Impression: Chest X-Ray 11/12/24 04:53 EXAM: XR chest 1V portable CLINICAL HISTORY: Fall TECHNIQUE: An X-ray image of the chest is obtained in AP projection. COMPARISON: 08/23/2023 CXR. FINDINGS: Pulmonary Parenchyma: Lungs are clear bilaterally. No evidence of consolidation, collapse, or focal opacities. No pulmonary nodules are identified. No evidence of pleural effusion or pleural thickening. Heart and Mediastinum: Enlarged cardiac size with bilateral hilar vascular congestion was noted. No mediastinal widening or masses. No hilar or mediastinal lymphadenopathy. Bony Thorax: The bony thorax appears intact without fractures or deformities. Soft Tissues: Soft tissues overlying the chest wall are unremarkable. IMPRESSION: Cardiomegaly with bilateral hilar vascular congestion was noted. (more prominent compared to prior imaging). Electronically signed by Luciano Martínez 11-12-2024 05:28 AM Abdomen/Pelvis CT 11/12/24 04:54 EXAM: CT abd pelvis IV con only CLINICAL HISTORY: Trauma TECHNIQUE: Multiple contiguous axial images were obtained from the level of diaphragm to the pubis symphysis. This study was acquired after the IV administration of iodinated contrast material, given the patient's indications for the examination. If IV contrast material had not been administered, the likelihood of detecting abnormalities relevant to the patient's condition would have been substantially decreased. Coronal and sagittal reformatted images were generated and reviewed to improve anatomic localization and optimize lesion detection. CT scan was performed according to ALARA (as low as reasonably achievable). COMPARISON: none FINDINGS: The visualized lung bases are cshows fibro-atelectatic changes. ABDOMEN/PELVIS: The liver is normal in size and attenuation. No focal liver lesions are seen. Hepatic vasculature is patent. Post cholecystectomy status. Dilated common bile duct with mild bilobar intrahepatic biliary radicles dilatation. A small calcified granuloma in spleen. The pancreas, and adrenal glands are unremarkable. The kidneys are normal in size and attenuation. There is no hydronephrosis or perinephric fat stranding. No renal calculi or renal masses are identified. Multiple simple cortical cysts seen in bilateral kidneys, larges of right side measuring 3.7x2.4cm and largest on left side measuirng 2.5x2.3cm. The ureters are normal in caliber and no ureteral calculi are seen. The bladder is normal in contour. No evidence of focal or diffuse bowel wall thickening or evidence of bowel obstruction is seen. Multiple small 2-3mm diverticuli seen in cecum, ascending colon and sigmoid colon. The appendix is not visualized. No adenopathy or fluid collections are seen. The aorta is normal in caliber. Mild prostatomegaly. No aggressive appearing osseous lesions are identified.Mild anterior wedging of L1 vertebra. Small paraesophageal hiatus hernia. Fat containing left inguinal hernia. IMPRESSION: 1. No trauma related injury detected. 2. Dilated common bile duct with mild bilobar intrahepatic biliary radicles dilatation.-Post cholecystectomy changes. 3. Bilateral simple renal cortical cysts- BOSNIAK I. 4. Uncomplicated diverticulosis of cecum, ascending colon and sigmoid colon. 5. Small splenic calcified granuloma. 6. Mild prostatomegaly. 7. Small paraesophageal hiatus hernia. 8. Fat containing left inguinal hernia. Electronically signed by Alexi Jaramillo 11-12-2024 06:[address] 11/12/24 04:54 EXAM: CT chest diagnostic w con CLINICAL HISTORY: Trauma TECHNIQUE: Contiguous axial images were obtained from the neck base through the upper abdomen following intravenous administration of contrast material. If IV contrast material had not been administered, the likelihood of detecting abnormalities relevant to the patient's condition would have been substantially decreased. In addition, sagittal and coronal reconstructions were performed. CT scan was performed according to ALARA (as low as reasonably achievable). COMPARISON: none FINDINGS: Subpleural ground glassing in posterior segments of bilateral lungs. Fibroatelectatic bands in bilateral lower lobes. No pulmonary nodules are seen. The central airways are patent. There are no pleural effusions. No pneumothorax is seen. No axillary, hilar, or mediastinal adenopathy is identified. The visualized thyroid is unremarkable. The heart, aorta, and pulmonary arteries are of normal size and configuration. No pericardial effusion is identified. Imaged portions of the upper abdomen are unremarkable. No aggressive appearing osseous lesions are identified. Degenerative changes in the visualized spine. IMPRESSION: 1. No trauma related injury detected. 2. Subpleural ground glassing in posterior segments of bilateral lungs- likely postural/perfusion related changes. 3. Fibroatelectatic bands in bilateral lower lobes- likely post infective sequalae. Electronically signed by Alexi Jaramillo 11-12-2024 06:[address] 11/12/24 04:55 EXAM: CT cervical spine wo con CLINICAL HISTORY: Trauma TECHNIQUE: Computed tomography of the cervical spine performed without intravenous contrast. Contiguous axial images were obtained from the skull base to T2, with sagittal and coronal reformatted images reconstructed from the axial data. CT scan was performed according to ALARA (as low as reasonably achievable). COMPARISON: none FINDINGS: Loss of cervical lordotic curvature. Decreased disc height with end plate irregularities and marginal osteophytes at C4/C5, C5/C6, and C6/C7 levels Posterior osteophytes at C5/C6 and C6/C7 levels causing bilateral mild neural foraminal narrowing. Facteal arthrosis at multiple levels. Cervical vertebral bodies are normal in height and alignment, with no evidence of fracture or subluxation. Lateral masses of C1 are symmetrical, and the dens is intact. Prevertebral soft tissues are not widened. The remaining suprahyoid and infrahyoid soft tissues in the neck are unremarkable. No disc bulge, mass effect on the cord. Thyroid gland appears unremarkable. IMPRESSION: 1. No acute fracture or subluxation in the cervical spine. 2. Cervical spondylosis. Electronically signed by Alexi Jaramillo 11-12-2024 06:[address] 11/12/24 04:55 EXAM: CT head/brain wo con CLINICAL HISTORY: Trauma TECHNIQUE: Multiple axial images are obtained from the skull base to the vertex without contrast. CT scan was performed according to ALARA (as low as reasonably achievable). 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 No evidence of hemorrhage, edema, mass effect, midline shift, or hydrocephalus is noted. An extra-axial dural based hyperdense lesion of size 2x1.2cm seen along right frontal region. Basal cisterns are symmetric and normal in size and configuration. There are scattered periventricular hypodensities as can be seen with chronic microvascular ischemic changes. The dailey-white matter differentiation is preserved. Visualized paranasal sinuses and mastoid air cells are well aerated. Right prosthetic globe noted. Post operative repair of floor of right orbit. Old left nasal bone fracture. IMPRESSION: 1. No evidence of acute intracranial abnormality is demonstrated. 2. Chronic microvascular ischemic changes. 3. Cerebral atrophy. 4. Stable extra-axial dural based hyperdense lesion along right frontal region.Possible meningioma. 5. Old left nasal bone fracture. Electronically signed by Alexi Jaramillo 11-12-2024 06:[address] 11/12/24 04:58 EXAM: CT facial bones wo con CLINICAL HISTORY: eval for trauma TECHNIQUE: Computed tomography of the orbits/face was performed without intravenous contrast. Contiguous axial images were obtained. Reformatted coronal and sagittal images were also reviewed. CT scan was performed according to ALARA (as low as reasonably achievable). COMPARISON: none FINDINGS: Right prosthetic globe noted. Post operative repair of floor and few mara in lateral wall of right orbit. Fixation wires in left anterior ethmoid bone. Old left nasal bone fracture. No acute facial fractures. Mild bilateral ethmoidal, left maxillary and frontal sinusitis. The mastoid air cells are clear. Included portions of the mandible are intact. The included intracranial substances and airway are unremarkable. IMPRESSION: 1. No acute facial fractures. Right prosthetic globe noted. 2. Post operative repair of floor and few mara in lateral wall of right orbit. 3. Fixation wires in left anterior ethmoid bone. 4. Old left nasal bone fracture. 5. Mild bilateral ethmoidal, left maxillary and frontal sinusitis. Electronically signed by Alexi Jaramillo 11-12-2024 06:42 AM Discharge Plan Visit Data Chief Complaint: Trauma Stated Complaint: FOUND ON FLOOR, ABRASIONS TO FACE COAx2 ED Provider: Janneth Perry Discharge Problem: Syncope, Head injury Forms Stand Alone Forms: Caterna Prescriptions Prescriptions: No Action tamsulosin 0.4 mg capsule 0.4 mg PO DAILY Qty: 90 3RF atorvastatin 40 mg tablet 40 mg PO DAILY Qty: 90 3RF aspirin 81 mg tablet,delayed release (DR/EC) 81 mg PO DAILY Qty: 30 2RF sildenafil 100 mg tablet 100 mg PO DAILY PRN (Reason: sexual activity) Qty: 20 3RF Rx Instructions: administer 30 minutes to 4 hours before activity naproxen 500 mg tablet 500 mg PO BID 14 Days Qty: 28 0RF Rx Instructions: For plantar fasciitis Take with food triamcinolone acetonide 0.1 % ointment 1 applic topical BID 14 Days Qty: 80 0RF Rx Instructions: use for rash on foot Referrals Referrals: Margy Maharaj MD [Primary Care Provider] - Discharge Problem: Syncope Qualifiers: Syncope type: unspecified Qualified Code(s): R55 - Syncope and collapse
[2024-11-12 05:23] LABS: iSTAT Creatinine 1.5 mg/dl (0.6-1.3); iSTAT Ionized Calcium 1.09 mmol/l (1.12-1.32); iSTAT Potassium 4.4 mmol/L (3.3-5.0)
[2024-11-12 05:24] LABS: Basophils # (auto) 0.04 K/uL (0.00-0.20); Basophils % (auto) 0.4 %; Eosinophils # (auto) 0.22 K/uL (0.00-0.50); Eosinophils % (auto) 2.4 %; Hematocrit (blood only) 45.2 % (42.0-52.0); Hemoglobin 14.9 g/dl (14.0-18.0); Immature Granulocytes # (auto) 0.02 K/uL (0.01-0.20); Immature Granulocytes % (auto) 0.2 %; Lymphocytes # (auto) 1.62 K/uL (1.20-3.40); Lymphocytes % (auto) 17.5 %; Mean Corpuscular Hemoglobin 28.8 pg (25.0-34.0); Mean Corpuscular Volume 87.3 fL (80.0-100.0); Mean Platelet Volume 10.5 fL (9.4-12.4); Monocytes # (auto) 0.62 K/uL (0.11-0.59); Monocytes % (auto) 6.7 %; Neutrophils # (auto) 6.76 K/uL (1.40-6.50); Neutrophils % (auto) 72.8 %; Platelet Count 178 K/uL (130-400); RDW Coefficient of Variation 14.8 % (11.5-14.5); RDW Standard Deviation 47.5 fL (36.4-46.3); Red Blood Count 5.18 M/uL (4.70-6.10); White Blood Count 9.28 K/ul (4.8-10.8)
[2024-11-12] MEDS: OPTIRAY 320 100ml IV ONE (05:28)
--- NOTE | 2024-11-12 05:28 | XRay Report ---
EXAM: XR chest 1V portable CLINICAL HISTORY: Fall TECHNIQUE: An X-ray image of the chest is obtained in AP projection. COMPARISON: 08/23/2023 CXR. FINDINGS: Pulmonary Parenchyma: Lungs are clear bilaterally. No evidence of consolidation, collapse, or focal opacities. No pulmonary nodules are identified. No evidence of pleural effusion or pleural thickening. Heart and Mediastinum: Enlarged cardiac size with bilateral hilar vascular congestion was noted. No mediastinal widening or masses. No hilar or mediastinal lymphadenopathy. Bony Thorax: The bony thorax appears intact without fractures or deformities. Soft Tissues: Soft tissues overlying the chest wall are unremarkable. IMPRESSION: Cardiomegaly with bilateral hilar vascular congestion was noted. (more prominent compared to prior imaging). Electronically signed by Luciano Martínez 11-12-2024 05:28 AM
[2024-11-12 05:39] LABS: Albumin Globulin Ratio 1.5 (0.9-2); Albumin Level 3.6 gm/dl (3.4-5.0); BUN Creatinine Ratio 12.8 (10-20); Bilirubin,Total 0.8 mg/dl (0.2-1.0); Creatinine Clr Calc Pharmacy 55.3 ml/min; Globulin 2.4 gm/dl (2.5-4.0); Magnesium 1.7 mg/dl (1.7-2.4); Potassium 4.3 mmol/L (3.5-5.1)
[2024-11-12] MEDS: ONDANSETRON INJ 2 MG/ML 2 ML VIAL ONE (05:43)
[2024-11-12 05:46] LABS: Troponin I High Sensitivity 2.3 pg/ml (0-20)
[2024-11-12 05:57] LABS: INR 1.1 (0.9-1.1); Partial Thromboplastin Ratio 0.8; Partial Thromboplastin Time 21 Seconds (21-31); Prothrombin Time 11.4 Seconds (9.0-12.0)
--- NOTE | 2024-11-12 06:18 | CT Scan Report ---
EXAM: CT head/brain wo con CLINICAL HISTORY: Trauma TECHNIQUE: Multiple axial images are obtained from the skull base to the vertex without contrast. CT scan was performed according to ALARA (as low as reasonably achievable). 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 No evidence of hemorrhage, edema, mass effect, midline shift, or hydrocephalus is noted. An extra-axial dural based hyperdense lesion of size 2x1.2cm seen along right frontal region. Basal cisterns are symmetric and normal in size and configuration. There are scattered periventricular hypodensities as can be seen with chronic microvascular ischemic changes. The dailey-white matter differentiation is preserved. Visualized paranasal sinuses and mastoid air cells are well aerated. Right prosthetic globe noted. Post operative repair of floor of right orbit. Old left nasal bone fracture. IMPRESSION: 1. No evidence of acute intracranial abnormality is demonstrated. 2. Chronic microvascular ischemic changes. 3. Cerebral atrophy. 4. Stable extra-axial dural based hyperdense lesion along right frontal region.Possible meningioma. 5. Old left nasal bone fracture. Electronically signed by Alexi Jaramillo 11-12-2024 06:17 AM
--- NOTE | 2024-11-12 06:43 | CT Scan Report ---
EXAM: CT facial bones wo con CLINICAL HISTORY: eval for trauma TECHNIQUE: Computed tomography of the orbits/face was performed without intravenous contrast. Contiguous axial images were obtained. Reformatted coronal and sagittal images were also reviewed. CT scan was performed according to ALARA (as low as reasonably achievable). COMPARISON: none FINDINGS: Right prosthetic globe noted. Post operative repair of floor and few mara in lateral wall of right orbit. Fixation wires in left anterior ethmoid bone. Old left nasal bone fracture. No acute facial fractures. Mild bilateral ethmoidal, left maxillary and frontal sinusitis. The mastoid air cells are clear. Included portions of the mandible are intact. The included intracranial substances and airway are unremarkable. IMPRESSION: 1. No acute facial fractures. Right prosthetic globe noted. 2. Post operative repair of floor and few mara in lateral wall of right orbit. 3. Fixation wires in left anterior ethmoid bone. 4. Old left nasal bone fracture. 5. Mild bilateral ethmoidal, left maxillary and frontal sinusitis. Electronically signed by Alexi Jaramillo 11-12-2024 06:42 AM
--- NOTE | 2024-11-12 06:44 | CT Scan Report ---
EXAM: CT cervical spine wo con CLINICAL HISTORY: Trauma TECHNIQUE: Computed tomography of the cervical spine performed without intravenous contrast. Contiguous axial images were obtained from the skull base to T2, with sagittal and coronal reformatted images reconstructed from the axial data. CT scan was performed according to ALARA (as low as reasonably achievable). COMPARISON: none FINDINGS: Loss of cervical lordotic curvature. Decreased disc height with end plate irregularities and marginal osteophytes at C4/C5, C5/C6, and C6/C7 levels Posterior osteophytes at C5/C6 and C6/C7 levels causing bilateral mild neural foraminal narrowing. Facteal arthrosis at multiple levels. Cervical vertebral bodies are normal in height and alignment, with no evidence of fracture or subluxation. Lateral masses of C1 are symmetrical, and the dens is intact. Prevertebral soft tissues are not widened. The remaining suprahyoid and infrahyoid soft tissues in the neck are unremarkable. No disc bulge, mass effect on the cord. Thyroid gland appears unremarkable. IMPRESSION: 1. No acute fracture or subluxation in the cervical spine. 2. Cervical spondylosis. Electronically signed by Alexi Jaramillo 11-12-2024 06:44 AM
--- NOTE | 2024-11-12 06:46 | CT Scan Report ---
EXAM: CT chest diagnostic w con CLINICAL HISTORY: Trauma TECHNIQUE: Contiguous axial images were obtained from the neck base through the upper abdomen following intravenous administration of contrast material. If IV contrast material had not been administered, the likelihood of detecting abnormalities relevant to the patient's condition would have been substantially decreased. In addition, sagittal and coronal reconstructions were performed. CT scan was performed according to ALARA (as low as reasonably achievable). COMPARISON: none FINDINGS: Subpleural ground glassing in posterior segments of bilateral lungs. Fibroatelectatic bands in bilateral lower lobes. No pulmonary nodules are seen. The central airways are patent. There are no pleural effusions. No pneumothorax is seen. No axillary, hilar, or mediastinal adenopathy is identified. The visualized thyroid is unremarkable. The heart, aorta, and pulmonary arteries are of normal size and configuration. No pericardial effusion is identified. Imaged portions of the upper abdomen are unremarkable. No aggressive appearing osseous lesions are identified. Degenerative changes in the visualized spine. IMPRESSION: 1. No trauma related injury detected. 2. Subpleural ground glassing in posterior segments of bilateral lungs- likely postural/perfusion related changes. 3. Fibroatelectatic bands in bilateral lower lobes- likely post infective sequalae. Electronically signed by Alexi Jaramillo 11-12-2024 06:46 AM
--- NOTE | 2024-11-12 06:48 | CT Scan Report ---
EXAM: CT abd pelvis IV con only CLINICAL HISTORY: Trauma TECHNIQUE: Multiple contiguous axial images were obtained from the level of diaphragm to the pubis symphysis. This study was acquired after the IV administration of iodinated contrast material, given the patient's indications for the examination. If IV contrast material had not been administered, the likelihood of detecting abnormalities relevant to the patient's condition would have been substantially decreased. Coronal and sagittal reformatted images were generated and reviewed to improve anatomic localization and optimize lesion detection. CT scan was performed according to ALARA (as low as reasonably achievable). COMPARISON: none FINDINGS: The visualized lung bases are cshows fibro-atelectatic changes. ABDOMEN/PELVIS: The liver is normal in size and attenuation. No focal liver lesions are seen. Hepatic vasculature is patent. Post cholecystectomy status. Dilated common bile duct with mild bilobar intrahepatic biliary radicles dilatation. A small calcified granuloma in spleen. The pancreas, and adrenal glands are unremarkable. The kidneys are normal in size and attenuation. There is no hydronephrosis or perinephric fat stranding. No renal calculi or renal masses are identified. Multiple simple cortical cysts seen in bilateral kidneys, larges of right side measuring 3.7x2.4cm and largest on left side measuirng 2.5x2.3cm. The ureters are normal in caliber and no ureteral calculi are seen. The bladder is normal in contour. No evidence of focal or diffuse bowel wall thickening or evidence of bowel obstruction is seen. Multiple small 2-3mm diverticuli seen in cecum, ascending colon and sigmoid colon. The appendix is not visualized. No adenopathy or fluid collections are seen. The aorta is normal in caliber. Mild prostatomegaly. No aggressive appearing osseous lesions are identified.Mild anterior wedging of L1 vertebra. Small paraesophageal hiatus hernia. Fat containing left inguinal hernia. IMPRESSION: 1. No trauma related injury detected. 2. Dilated common bile duct with mild bilobar intrahepatic biliary radicles dilatation.-Post cholecystectomy changes. 3. Bilateral simple renal cortical cysts- BOSNIAK I. 4. Uncomplicated diverticulosis of cecum, ascending colon and sigmoid colon. 5. Small splenic calcified granuloma. 6. Mild prostatomegaly. 7. Small paraesophageal hiatus hernia. 8. Fat containing left inguinal hernia. Electronically signed by Alexi Jaramillo 11-12-2024 06:47 AM
[2024-11-12] MEDS ORDERED: ACETAMINOPHEN 325 MG TAB PO PRN (08:22)
[2024-11-12] MEDS ORDERED: POLYETHYLENE (MIRALAX) 17 GM PACK PO PRN (08:22)
[2024-11-12 08:40] LABS: Adenovirus PCR Not Detected (NotDetected); Bordetella parapertussis PCR Not Detected (NotDetected); Bordetella pertussis PCR Not Detected (NotDetected); Chlamydia pneumoniae PCR Not Detected (NotDetected); Coronavirus 229E PCR Not Detected (NotDetected); Coronavirus CoV-2 (COVID19)PCR Not Detected (NotDetected); Coronavirus HKU1 PCR Not Detected (NotDetected); Coronavirus NL63 PCR Not Detected (NotDetected); Coronavirus OC43PCR Not Detected (NotDetected); Human Metapneumovirus PCR Not Detected (NotDetected); Influenza A PCR Not Detected (NotDetected); Influenza B PCR Not Detected (NotDetected); Mycoplasma pneumoniae PCR Not Detected (NotDetected); Parainfluenza Virus 1 PCR Not Detected (NotDetected); Parainfluenza Virus 2 PCR Not Detected (NotDetected); Parainfluenza Virus 3 PCR Not Detected (NotDetected); Parainfluenza Virus 4 PCR Not Detected (NotDetected); Respiratory Syncytial VirusPCR Not Detected (NotDetected); Rhinovirus/Enterovirus PCR Not Detected (NotDetected)
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
[2024-11-12] MEDS: ATORVASTATIN 40 MG TAB PO SCH (09:50)
[2024-11-12] MEDS: TAMSULOSIN HCL 0.4 MG CAP PO SCH (09:50)
[2024-11-12] MEDS: ASPIRIN 81 MG ECTAB PO SCH (09:50)
--- NOTE | 2024-11-12 10:53 | Billing Data ---
Date of Service November 12, 2024 Coding Level of Care Code 58239 INT INP/OBS CARE
[2024-11-12 11:36] LABS: Appearance Urine Clear (Clear); Bilirubin Urine Negative (Negative); Blood Urine Negative (Negative); Color Urine Yellow; Glucose Urine UA Negative (Negative); Ketones Urine Trace (Negative); Leukocyte Esterase Urine Negative (Negative); Nitrite Urine Negative (Negative); Protein Urine Negative (Negative); Specific Gravity Urine > 1.045 (1.000-1.030); Urobilinogen Urine Negative (Negative)
[2024-11-12] MEDS: SODIUM CHLORIDE 0.9% 1,000 ML IV SCH (11:47)
[2024-11-12 12:31] LABS: Adenovirus F 40/41 PCR Not Detected (NotDetected); Astrovirus PCR Not Detected (NotDetected); Campylobacter PCR Not Detected (NotDetected); Cryptosporidium PCR Not Detected (NotDetected); Cyclospora cayetanensis PCR Not Detected (NotDetected); Entamoeba histolytica PCR Not Detected (NotDetected); Enteroaggregative E.coli(EAEC) Not Detected (NotDetected); Enteropathogenic E.coli (EPEC) Not Detected (NotDetected); Enterotoxigenic E.coli (ETEC) Not Detected (NotDetected); Giardia lamblia PCR Not Detected (NotDetected); Norovirus GI/GII PCR Not Detected (NotDetected); Plesiomonas shigelloides PCR Not Detected (NotDetected); Rotavirus A PCR Not Detected (NotDetected); Salmonella PCR Not Detected (NotDetected); Sapovirus PCR Not Detected (NotDetected); Shiga-like Toxin E.coli (STEC) Not Detected (NotDetected); Shigella/Enteroinvasive E.coli Not Detected (NotDetected); Vibrio cholerae PCR Not Detected (NotDetected); Vibrio species PCR Not Detected (NotDetected); Yersinia enterocolitica PCR Not Detected (NotDetected)
--- NOTE | 2024-11-12 14:59 | Electroencephalogram ---
EEG Procedure Note Date of Service November 12, 2024 Start / End Times Start Time: 1244 End Time: 1304 Referring Physician jani hunt History syncope Home Medication List Medication Instructions Recorded Confirmed Type aspirin 81 mg tablet,delayed 81 mg PO DAILY #30 tabs 02/04/22 11/12/24 Rx release atorvastatin 40 mg tablet 40 mg PO DAILY #90 tabs 11/02/24 11/12/24 Rx tamsulosin 0.4 mg capsule 0.4 mg PO DAILY #90 caps 11/02/24 11/12/24 Rx Inpatient Medication List Aspirin (Aspirin 81 Mg Ectab) 81 mg PO DAILY SPENCER Stop: 12/12/24 09:17 Last Admin: 11/12/24 09:50 Dose: 81 mg Documented By: WILLIAMS Atorvastatin Calcium (Atorvastatin 40 Mg Tab) 40 mg PO DAILY SPENCER Stop: 12/12/24 09:17 Last Admin: 11/12/24 09:50 Dose: 40 mg Documented By: WILLIAMS Sodium Chloride (Nss) 1,000 mls @ 80 mls/hr IV .[id number] SPENCER Stop: 11/13/24 11:29 Last Admin: 11/12/24 11:47 Dose: 80 mls/hr Documented By: BRINDA Tamsulosin HCl (Tamsulosin Hcl 0.4 Mg Cap) 0.4 mg PO DAILY SPENCER Stop: 12/12/24 09:17 Last Admin: 11/12/24 09:50 Dose: 0.4 mg Documented By: WILLIAMS Discontinued Medications Ioversol (Optiray 320 100ml) 100 ml IV ONCE ONE Stop: 11/12/24 05:29 Last Admin: 11/12/24 05:28 Dose: 93 ml Documented By: GUANAKO Ondansetron HCl (Ondansetron Inj 2 Mg/Ml 2 Ml Vial) Confirm Administered Dose 4 mg .ROUTE .STK-MED ONE Stop: 11/12/24 04:55 Last Admin: 11/12/24 05:43 Dose: Not Given Documented By: ALFONZO Ondansetron HCl (Ondansetron Inj 2 Mg/Ml 2 Ml Vial) 4 mg IV NOW STA Stop: 11/12/24 04:57 Last Admin: 11/12/24 04:56 Dose: 4 mg Documented By: Description This is a 21 electrode EEG with a single channel dedicated to limited EKG. The electrodes were placed in accordance with the International 10-20 system. Interpretation This is a 21 electrode EEG with a single channel dedicated to limited EKG. The electrodes were placed in accordance with the International 10-20 system. There is a posterior dominant rhythm of 8 to 9 Hz which is symmetrically distributed and attenuates with eye opening. There is a normal anterior to posterior organization. Photic stimulation: unremarkable Hyperventilation performed: ___ unremarkable; _x_ not performed. There is no focal slowing. No epileptiform abnormalities. Sleep stage: _x_ not achieved, ___drowsy state, ___ Stage II, ___ REM stage achieved. Interpretation Normal-appearing awake/sleep EEG. A normal EEG does not completely exclude a diagnosis of epilepsy. [facility] Procedure Codes Indication for Procedure (1) Syncope: Neurology Neurology: 14895 EEG include record awake & drowsy
--- NOTE | 2024-11-13 05:38 | Electrocardiogram Report ---
Test Reason : Blood Pressure : */* mmHG Vent. Rate : 53 BPM Atrial Rate : 53 BPM P-R Int : 172 ms QRS Dur : 98 ms QT Int : 502 ms P-R-T Axes : -20 39 14 degrees QTcB Int : 471 ms Sinus bradycardia Otherwise normal ECG When compared with ECG of 12-Aug-2020 16:28, No significant change Confirmed by Ramiro Holly ([id number]) on 11/13/2024 5:37:26 AM Referred By: REFERRED SELF Confirmed By: Ramiro Holly
[2024-11-13 07:52] LABS: Hematocrit (blood only) 42.6 % (42.0-52.0); Hemoglobin 13.8 g/dl (14.0-18.0); Mean Corpuscular Hemoglobin 28.8 pg (25.0-34.0); Mean Corpuscular Hgb Conc 32.4 g/dL (32.0-36.0); Mean Corpuscular Volume 88.9 fL (80.0-100.0); Mean Platelet Volume 10.4 fL (9.4-12.4); Platelet Count 166 K/uL (130-400); RDW Coefficient of Variation 15.1 % (11.5-14.5); RDW Standard Deviation 49.5 fL (36.4-46.3); Red Blood Count 4.79 M/uL (4.70-6.10); White Blood Count 7.49 K/ul (4.8-10.8)
[2024-11-13 08:08] LABS: BUN Creatinine Ratio 9.5 (10-20); Calcium 8.3 mg/dl (8.6-10.3); Creatinine Clr Calc Pharmacy 44.8 ml/min; Potassium 4.1 mmol/L (3.5-5.1)
[2024-11-13] MEDS: OPTIRAY 320 125ml IV ONE (10:34)
--- NOTE | 2024-11-13 10:53 | CT Scan Report ---
CTA ANGIOGRAPHY OF THE HEAD CLINICAL HISTORY: Syncope. COMPARISON STUDY: CTA of the head March 07, 2024. Head CT November 12, 2024. TECHNIQUE: Helical axial images of the head were obtained following uneventful intravenous administr ation of 119 cc of Optiray. Sagittal and coronal reconstructions were viewed as well as maximal inten sity projections on an independent 3-D workstation. Automated exposure control was utilized for the study. A dose lowering technique was utilized adhering to the principles of ALARA. CT DOSE: 149.47 mGy.cm FINDINGS: There are no calvarial fractures. Posttraumatic and postsurgical changes within the right o rbit are unchanged since CTA of March 07, 2024. Sinus mucosal thickening has mildly increased since exa m. An enhancing extra-axial 2.6 cm lesion overlying the superior right frontal lobe is unchanged. Thi s represents a meningioma. Ventricular system is normal. Basal cisterns are patent. No intracranial h emorrhage is identified on this contrast enhanced exam. 3.5 mm saccular aneurysm arising from the ant erior communicating artery is unchanged. No additional intracranial aneurysms are present. There is n o vessel occlusion. There is moderate plaque within the cavernous carotids without significant stenos is. The posterior circulation is intact. The appearance of the intracranial circulation is unchanged. IMPRESSION: 1. No intracranial vessel occlusion identified. 2. No change in a 3.5 mm saccular anterior communicating artery aneurysm since prior CTA. 3. No change in a 2.6 cm right frontal convexity meningioma. ACT 112: Negative or not required by law. Electronically signed by: Hever Rubio M.D. 11/13/2024 10:51 AM
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
[2024-11-13 15:30] VITALS: BP 116/67; RESP 20; TEMP 98.1; O2SAT 95
[2024-11-13 15:52] VITALS: PULSE 54
--- NOTE | 2024-11-13 18:36 | Billing Data ---
Date of Service November 13, 2024 Coding Level of Care Code 43733 IN/OBS DISCH 30 MIN/LESS
== END 2024-11-13 16:22 | disposition home or self-care (01) | DRG 312 ==
LOC: ED 04:47 → EDINP 08:22 → 2N 13:25